=== PATIENT | male | born 1940 | race Caucasian/White ===

== ENCOUNTER 2017-09-19 14:42 | Inpatient (IN) | payer MEDICARE, OTHER ==
[2017-09-19] MEDS ORDERED: Nitrostat 0.4 MG Tablet SL PRN (16:50)
[2017-09-19] MEDS ORDERED: NON-FORMULARY ITEM (Warfarin Sodium [Coumadin] 4 MG) PO SCH (18:00)
[2017-09-19] MEDS: Colace 100 MG PO SCH (21:30)
[2017-09-20] MEDS: TENORMIN 50 MG PO SCH (08:31)
[2017-09-20] MEDS: Cozaar 50 MG PO SCH (08:31)
[2017-09-20] MEDS: Colace 100 MG PO SCH ×2 (08:31→21:27)
[2017-09-20] MEDS: THERAGRAN MULTIVITAMIN PO SCH (08:31)
[2017-09-20] MEDS: Cardizem CD 240 MG PO SCH (08:32)
[2017-09-20] MEDS: monoKET 20 MG PO SCH (08:32)
[2017-09-20] MEDS: Lasix 40 MG PO PRN (08:38)
[2017-09-20] MEDS ORDERED: SAW PO SCH (10:00)
[2017-09-20] MEDS ORDERED: PATIENT OWN MEDICATION PO SCH (10:00)
[2017-09-20] MEDS ORDERED: BETA PO SCH (10:00)
[2017-09-20] MEDS ORDERED: SOD SEL PO SCH (10:00)
[2017-09-20] MEDS ORDERED: MULTIVITAMIN PO SCH (10:00)
[2017-09-20] MEDS ORDERED: FLUZONE HIGH-DOSE 2017-18 SYR IM ONE (10:00)
[2017-09-20] MEDS ORDERED: VIT E PO SCH (10:00)
[2017-09-20] MEDS ORDERED: PYG PO SCH (10:00)
[2017-09-20] MEDS ORDERED: LYC PO SCH (10:00)
[2017-09-20] MEDS ORDERED: ATENOLOL 100 MG PO SCH (10:00)
[2017-09-20] MEDS: TYLENOL EXTRA STRENGTH 500 MG PO PRN ×2 (11:03→18:22)
--- NOTE | 2017-09-20 11:26 | PCM.HP ---
History of Present Illness - Chief Complaint Chief Complaint: Deconditionig R/T total R knee athroplasty. Date: 09/20/17 History of Present Illness: is a 77 year old male. who had right tka at [facility] and has presented for rehab inpatient So far doing well able to flex knee to 80 degrees walking with walker working with therapy no other complaints. Medications & Allergies Home Medications: Home Medication List Atenolol 100 mg PO DAILY 08/14/13 [History Confirmed 09/19/17] Isosorbide Mononitrate 20 mg [monoKET 20 MG] 20 mg PO DAILY 08/14/13 [ History Confirmed 09/19/17] Losartan Potassium 50 mg [Cozaar 50 MG] 100 mg PO DAILY 08/14/13 [History Confirmed 09/19/17] Multivitamin [Daily Enrique] 1 each PO DAILY 08/14/13 [History Confirmed 09/19/17] Nitroglycerin 0.4 mg Tablet [Nitrostat 0.4 MG Tablet] 0.4 mg SL .PRN PRN 08/14/13 [History Confirmed 09/19/17] Warfarin Sodium [Coumadin] 4 mg PO EVENING MEAL 08/14/13 [History Confirmed ] Furosemide [Lasix] 40 mg PO DAILY PRN 05/10/15 [History Confirmed 09/19/17] Saw/Vit E/Sod Sarina/Lyc/Beta/Pyg [Prostate Health Caplet] 2 tab PO DAILY 05/10/15 [History Confirmed 09/19/17] Docusate Sodium 100 mg [Colace 100 MG] 100 mg PO BID #60 capsule 05/15/15 [Rx Confirmed 09/19/17] Acetaminophen [Tylenol Extra Strength] 1,000 mg PO Q4-6HPRN PRN 09/19/17 [ History Confirmed 09/19/17] Diltiazem HCl [Diltiazem 24Hr ER] 240 mg PO DAILY 09/19/17 [History Confirmed ] Allergies/Adverse Reactions: Allergies Allergy/AdvReac Type Severity Reaction Status Date / Time [id number]-Iae-Mzg Reductase Allergy Severe Verified 09/19/17 16:32 Inhibitor ALBERTA Inhibitors Allergy Intermediate Verified 09/19/17 16:32 enalapril maleate Allergy Mild Verified 05/10/15 14:06 [From Vasotec] enalaprilat dihydrate Allergy Mild Verified 05/10/15 14:06 [From Vasotec] Tetanus Vaccines and Toxoid Allergy Mild Verified 05/10/15 14:06 [Tetanus Vaccines & Toxoid] - Past Medical History Past Medical History: Yes Neurological History: No Pertinent History ENT History: Cataracts Cardiac History: Aneurysm, Arrhythmia (afib), Coronary Artery Disease, High Cholesterol, Hypertension Respiratory History: No Pertinent History Endocrine Medical History: No Pertinent History Musculoskelatal History: Arthritis, Fractures GI Medical History: No Pertinent History History: No Pertinent History Pyscho-Social History: No Pertinent History Male Reproductive Disorders: No Pertinent History Comment: HX R arm FX. - Past Surgical History Past Surgical History: Yes Neuro Surgical History: No Pertinent History Cardiac History: Angioplasty, CABG, Cardiac Catheterization, Cardiac Stent, Internal Defibrillator, Pacemaker Respiratory Surgery: Chest Surgery GI Surgical History: Cholecystectomy, Other Genitourinary Surgical Hx: No Pertinent History Musculskeletal Surgical Hx: Joint Replacement Male Surgical History: No Pertinent History Other Surgical History: ORIF Right humerus 2016. CABG 1985. Cariac cath 2001, 2005, 2008, 2010, 2013 (stent). AICD 2008. jadiel hip replacement. R arm. R knee. resection abdominal aortic aneruysm 2001. Cholecystectomy 2014 - Social History Smoking Status: Former smoker How long have you smoked: 30 years Exposure to second hand smoke: No Alcohol: None Drug Use: none - Physical Exam Vital Signs: Vital Signs - 24 hr Temp Pulse Resp BP BP Pulse Ox 09/20/17 08:31 79 166/90 09/20/17 07:48 98.3 F 79 18 166/90 95 09/19/17 19:47 98.5 F 61 16 127/71 95 09/19/17 16:47 98 F 86 22 112/57 94 L 09/19/17 16:13 98 F 86 22 112/57 94 L General Appearance: no apparent distress, alert, obese Neurologic Exam: alert, oriented x 3, cooperative, normal mood/affect, nml cerebellar function, nml station & gait, sensation nml, No motor deficits Eye Exam: PERRL/EOMI, eyes nml inspection Ears, Nose, Throat Exam: moist mucous membranes Neck Exam: normal inspection, non-tender, supple, full range of motion Respiratory Exam: normal breath sounds, lungs clear, No respiratory distress Cardiovascular Exam: regular rate/rhythm, normal heart sounds, normal peripheral pulses Gastrointestinal/Abdomen Exam: soft, normal bowel sounds, No tenderness, No mass Back Exam: normal inspection, normal range of motion, No CVA tenderness, No vertebral tenderness Extremity Exam: other (right knee with clean dry dressing distally warm minimal edemea flexion to 80 degrees no warmth or redness) Skin Exam: normal color, warm, dry, No rash Lymphatic Exam: No adenopathy Assessment/Plan (1) Total knee replacement status Current Visit: Yes Status: Acute Qualifiers: Laterality: right Qualified Code(s): Z96.651 - Presence of right artificial knee joint Assessment & Plan: continue therapy good rehab to home potential Code(s): Z96.659 - PRESENCE OF UNSPECIFIED ARTIFICIAL KNEE JOINT (2) Chronic atrial fibrillation Current Visit: Yes Status: Chronic Assessment & Plan: inr was 1.3 on 09/19 has been on 4mg warfarin daily for the last year prior to stopping for surgery and was in therapeutic range per patient monitor INR repeat and recheck Code(s): I48.2 - CHRONIC ATRIAL FIBRILLATION (3) CAD (coronary artery disease) Current Visit: Yes Status: Chronic Code(s): I25.10 - ATHSCL HEART DISEASE OF [place] CORONARY ARTERY W/O ANG PCTRS (4) HTN (hypertension) Current Visit: Yes Status: Chronic Code(s): I10 - ESSENTIAL (PRIMARY) HYPERTENSION
[2017-09-20] MEDS ORDERED: Coumadin 2 MG PO SCH (18:00)
[2017-09-20] MEDS: Coumadin 2 MG PO SCH (19:36)
[2017-09-20] MEDS: PATIENT OWN MEDICATION PO SCH (21:27)
[2017-09-21] MEDS: TYLENOL EXTRA STRENGTH 500 MG PO SCH (05:59)
[2017-09-21 06:06] LABS: INR 1.49 (0.8-3.0); PROTIME 16.6 SECONDS (8.83-12.87)
[2017-09-21] MEDS: Cardizem CD 240 MG PO SCH (10:03)
[2017-09-21] MEDS: Cozaar 50 MG PO SCH (10:03)
[2017-09-21] MEDS: TENORMIN 50 MG PO SCH (10:03)
[2017-09-21] MEDS: monoKET 20 MG PO SCH (10:03)
[2017-09-21] MEDS: THERAGRAN MULTIVITAMIN PO SCH (10:03)
[2017-09-21] MEDS: Colace 100 MG PO SCH ×2 (10:03→22:20)
[2017-09-21] MEDS: PATIENT OWN MEDICATION PO SCH ×2 (10:11→22:14)
[2017-09-21] MEDS: TYLENOL EXTRA STRENGTH 500 MG PO PRN (13:29)
[2017-09-21] MEDS: Coumadin 2 MG PO SCH (16:59)
[2017-09-21] MEDS ORDERED: Coumadin 2 MG PO SCH (18:00)
[2017-09-21] MEDS: ULTRAM 50 MG PO PRN (20:24)
[2017-09-22] MEDS: TYLENOL EXTRA STRENGTH 500 MG PO PRN ×3 (00:10→18:38)
[2017-09-22] MEDS: TYLENOL EXTRA STRENGTH 500 MG PO SCH (06:23)
--- NOTE | 2017-09-22 07:49 | PCM.NOTE ---
Date and Time: 09/22/17 0746 Subjective Assessment: patient doing well, notes some swelling and erythema around bandage on right knee, no other complaints Objective Exam General Appearance: no apparent distress, alert Respiratory Exam: normal breath sounds, lungs clear, No respiratory distress Cardiovascular Exam: regular rate/rhythm, normal heart sounds Gastrointestinal/Abdomen Exam: soft, No tenderness, No mass Extremity Exam: other (dressing intact, 2 small areas of apparent moisture under bandage, mild surrounding erythema, no obvious warmth, no fluctuance or obvious effusion) OBJECTIVE DATA Vital Signs: Vital Signs - 24 hr Temp Pulse Resp BP BP Pulse Ox 09/22/17 07:10 98.3 F 69 18 188/88 96 09/21/17 19:57 98.5 F 61 17 139/67 95 09/21/17 10:03 80 142/64 Pain Assessment - Last Documented Pain Intensity 3 Pain Scale Used 0-10 Pain Scale Intake and Output: Intake & Output 09/19/17 09/20/17 09/21/17 09/22/17 11:59 11:59 11:59 11:59 Intake Total 1320 840 Output Total 500 300 275 Balance -500 1020 565 Weight 110.087 kg Assessment/Plan (1) Total knee replacement status Current Visit: Yes Status: Acute Qualifiers: Laterality: right Qualified Code(s): Z96.651 - Presence of right artificial knee joint Assessment & Plan: add po keflex Code(s): Z96.659 - PRESENCE OF UNSPECIFIED ARTIFICIAL KNEE JOINT (2) Chronic atrial fibrillation Current Visit: Yes Status: Chronic Code(s): I48.2 - CHRONIC ATRIAL FIBRILLATION (3) HTN (hypertension) Current Visit: Yes Status: Chronic Code(s): I10 - ESSENTIAL (PRIMARY) HYPERTENSION
[2017-09-22] MEDS: TENORMIN 50 MG PO SCH (09:15)
[2017-09-22] MEDS: Cozaar 50 MG PO SCH (09:21)
[2017-09-22] MEDS: KEFLEX 500 MG PO SCH ×4 (09:22→21:01)
[2017-09-22] MEDS: monoKET 20 MG PO SCH (09:22)
[2017-09-22] MEDS: Cardizem CD 240 MG PO SCH (09:22)
[2017-09-22] MEDS: THERAGRAN MULTIVITAMIN PO SCH (09:23)
[2017-09-22] MEDS: Colace 100 MG PO SCH ×2 (09:23→21:01)
[2017-09-22] MEDS: PATIENT OWN MEDICATION PO SCH ×2 (09:50→21:02)
[2017-09-22] MEDS: Coumadin 2 MG PO SCH (17:36)
[2017-09-22] MEDS: ULTRAM 50 MG PO PRN (21:01)
[2017-09-23] MEDS: TYLENOL EXTRA STRENGTH 500 MG PO SCH (05:28)
[2017-09-23] MEDS: Cozaar 50 MG PO SCH (09:32)
[2017-09-23] MEDS: TENORMIN 50 MG PO SCH (09:33)
[2017-09-23] MEDS: Colace 100 MG PO SCH ×2 (09:33→22:37)
[2017-09-23] MEDS: THERAGRAN MULTIVITAMIN PO SCH (09:33)
[2017-09-23] MEDS: monoKET 20 MG PO SCH (09:33)
[2017-09-23] MEDS: KEFLEX 500 MG PO SCH ×4 (09:36→22:36)
[2017-09-23] MEDS: PATIENT OWN MEDICATION PO SCH ×2 (09:37→22:37)
[2017-09-23] MEDS: Cardizem CD 240 MG PO SCH (09:37)
[2017-09-23] MEDS: Lasix 40 MG PO PRN (10:57)
--- NOTE | 2017-09-23 14:58 | PCM.NOTE ---
Date and Time: 09/23/17 1454 Subjective Assessment: Pt was concerned about erythema and edema of R knee. He has been keeping ice on it. Redness is less than yesterday. He notes 2 d ago he felt really good and did quite a bit of walking. At rest knee is not painful, but sore when he's up on it. - Review of Systems Constitutional: No Fever Musculoskeletal: Joint Pain Objective Exam General Appearance: no apparent distress, alert Neurologic Exam: oriented x 3, cooperative Skin Exam: normal color, warm, dry Respiratory Exam: No respiratory distress Extremity Exam: other (RLE with dressing in place on knee. Medially and laterally to the knee joint itself are marked borders of former erythema. no appreciable erythema today. trace edema throughout.) OBJECTIVE DATA Vital Signs: Vital Signs - 24 hr Temp Pulse Resp BP BP Pulse Ox 09/23/17 09:33 62 171/84 09/23/17 07:19 98.2 F 61 18 171/84 95 09/22/17 19:37 97.7 F 61 18 148/74 95 Pain Assessment - Last Documented Pain Intensity 5 Pain Scale Used 0-10 Pain Scale Intake and Output: Intake & Output 09/21/17 09/22/17 09/23/17 09/24/17 11:59 11:59 11:59 11:59 Intake Total 1320 840 840 Output Total 300 275 275 Balance 1020 565 565 Assessment/Plan (1) Total knee replacement status Current Visit: Yes Status: Acute Qualifiers: Laterality: right Qualified Code(s): Z96.651 - Presence of right artificial knee joint Assessment & Plan: I spoke with DR. Marquez's nurse, she was not overly concerned about his knee and the erythema, thinks it is due to inflammation. I will keep him on the keflex for now (will let Dr. Shay know tomorrow). At any rate he seems to be improving. She advised when he is elevating the leg, have him lie in bed and put it up on 4 pillows. Code(s): Z96.659 - PRESENCE OF UNSPECIFIED ARTIFICIAL KNEE JOINT
[2017-09-23] MEDS: Coumadin 2 MG PO SCH (17:57)
[2017-09-24 06:00] LABS: INR 2.02 (0.8-3.0); PROTIME 22.6 SECONDS (8.83-12.87)
[2017-09-24] MEDS: TYLENOL EXTRA STRENGTH 500 MG PO SCH (06:52)
--- NOTE | 2017-09-24 08:50 | PCM.NOTE ---
Date and Time: 09/24/17 0849 Subjective Assessment: patient is feeling better today, thinks the redness has improved around the knee. he is tolerating therapy, pain is controlled Objective Exam General Appearance: no apparent distress, alert Respiratory Exam: normal breath sounds, lungs clear, No respiratory distress Cardiovascular Exam: regular rate/rhythm, normal heart sounds Gastrointestinal/Abdomen Exam: soft, No tenderness, No mass Extremity Exam: other (right knee dressing in place, minimal erythema around bandage) OBJECTIVE DATA Vital Signs: Vital Signs - 24 hr Temp Pulse Resp BP BP Pulse Ox 09/24/17 08:00 98.7 F 86 18 181/91 96 09/23/17 20:00 98.2 F 66 17 164/79 95 09/23/17 09:33 62 171/84 Pain Assessment - Last Documented Pain Intensity 5 Pain Scale Used 0-10 Pain Scale Intake and Output: Intake & Output 09/21/17 09/22/17 09/23/17 09/24/17 11:59 11:59 11:59 11:59 Intake Total 1320 840 840 360 Output Total 300 275 275 950 Balance 1020 565 565 -590 Lab Results: Lab Results-Last 24 Hours 09/24/17 Range/Units 05:38 INR 2.02 (0.8-3.0) Assessment/Plan (1) Total knee replacement status Current Visit: Yes Status: Acute Qualifiers: Laterality: right Qualified Code(s): Z96.651 - Presence of right artificial knee joint Assessment & Plan: continue keflex at this time, will monitor. erythema improving. Code(s): Z96.659 - PRESENCE OF UNSPECIFIED ARTIFICIAL KNEE JOINT (2) Chronic atrial fibrillation Current Visit: Yes Status: Chronic Code(s): I48.2 - CHRONIC ATRIAL FIBRILLATION (3) HTN (hypertension) Current Visit: Yes Status: Chronic Code(s): I10 - ESSENTIAL (PRIMARY) HYPERTENSION
[2017-09-24] MEDS: TENORMIN 50 MG PO SCH (09:41)
[2017-09-24] MEDS: Colace 100 MG PO SCH ×2 (09:42→21:11)
[2017-09-24] MEDS: THERAGRAN MULTIVITAMIN PO SCH (09:42)
[2017-09-24] MEDS: Cozaar 50 MG PO SCH (09:42)
[2017-09-24] MEDS: KEFLEX 500 MG PO SCH ×4 (09:42→21:11)
[2017-09-24] MEDS: Cardizem CD 240 MG PO SCH (09:42)
[2017-09-24] MEDS: monoKET 20 MG PO SCH (09:42)
[2017-09-24] MEDS: PATIENT OWN MEDICATION PO SCH ×2 (09:44→21:11)
[2017-09-24] MEDS: TYLENOL EXTRA STRENGTH 500 MG PO PRN ×2 (16:48→21:11)
[2017-09-24] MEDS: Coumadin 2 MG PO SCH (18:06)
[2017-09-25] MEDS: TYLENOL EXTRA STRENGTH 500 MG PO SCH (06:17)
[2017-09-25] MEDS: TENORMIN 50 MG PO SCH (08:28)
[2017-09-25] MEDS: Colace 100 MG PO SCH ×2 (08:28→23:10)
[2017-09-25] MEDS: Cozaar 50 MG PO SCH (08:28)
[2017-09-25] MEDS: THERAGRAN MULTIVITAMIN PO SCH (08:28)
[2017-09-25] MEDS: Cardizem CD 240 MG PO SCH (08:28)
[2017-09-25] MEDS: monoKET 20 MG PO SCH (08:28)
[2017-09-25] MEDS: KEFLEX 500 MG PO SCH ×4 (08:28→23:10)
[2017-09-25] MEDS: PATIENT OWN MEDICATION PO SCH ×2 (08:30→23:11)
[2017-09-25] MEDS: TYLENOL EXTRA STRENGTH 500 MG PO PRN ×2 (11:20→20:02)
[2017-09-25] MEDS: Coumadin 2 MG PO SCH (18:00)
[2017-09-25 20:02] VITALS: O2SAT 96
[2017-09-26] MEDS: TYLENOL EXTRA STRENGTH 500 MG PO SCH (06:11)
[2017-09-26 07:16] VITALS: BP 155/80; PULSE 82
[2017-09-26] MEDS: monoKET 20 MG PO SCH (07:56)
[2017-09-26] MEDS: KEFLEX 500 MG PO SCH (07:56)
[2017-09-26] MEDS: Cardizem CD 240 MG PO SCH (07:56)
[2017-09-26] MEDS: Colace 100 MG PO SCH (07:56)
[2017-09-26] MEDS: THERAGRAN MULTIVITAMIN PO SCH (07:56)
[2017-09-26] MEDS: TENORMIN 50 MG PO SCH (07:56)
[2017-09-26] MEDS: Cozaar 50 MG PO SCH (07:56)
--- NOTE | 2017-09-26 08:39 | PCM.DS ---
Discharge Summary Date of Admission: 09/19/17 15:58 Admitting Physician: AILEEN MULLEN Primary Care Provider: AILEEN MULLEN Allergies Allergies Akjldkv-Ajj-Lly Reductase Inhibitor Allergy (Severe, Verified 09/19/17 16:32) ALBERTA Inhibitors Allergy (Intermediate, Verified 09/19/17 16:32) enalapril maleate [From Vasotec] Allergy (Mild, Verified 05/10/15 14:06) enalaprilat dihydrate [From Vasotec] Allergy (Mild, Verified 05/10/15 14:06) Tetanus Vaccines and Toxoid [Tetanus Vaccines & Toxoid] Allergy (Mild, Verified 05/10/15 14:06) Hospital Summary - Hospital Course Hospital Course: patient was admitted from [facility] s/p right total knee, he is doing very well. therapy states he is ready for discharge and he would like to return to home today. he is tolerating therapy well, pain is well controlled. he is able to ambulate and feels comfortable he will be able to care for himself. - Vitals & Intake/Output Vital Signs: Vital Signs Temperature 98.1 F 09/26/17 07:15 Pulse Rate 82 09/26/17 07:56 Respiratory Rate 20 09/26/17 07:15 Blood Pressure 155/80 09/26/17 07:56 O2 Sat by Pulse Oximetry 96 09/26/17 07:15 Intake & Output: Intake & Output 09/23/17 09/24/17 09/25/17 09/26/17 11:59 11:59 11:59 11:59 Intake Total 840 984 360 0892 Output Total 275 225 675 625 Balance 565 -590 165 935 - Procedures and Test Procedures and Tests throughout Hospitalization: Therapy Orders & Screens 09/19/17 16:09 PT Eval & Treat ( Order) ROUTINE Evaluate: Yes Treat: Yes Reason for Eval:: right total knee replacement Discharge Exam General Appearance: no apparent distress, alert Respiratory Exam: normal breath sounds, lungs clear, No respiratory distress Cardiovascular Exam: regular rate/rhythm, normal heart sounds Gastrointestinal/Abdomen Exam: soft, No tenderness, No mass Final Diagnosis/Problem List - Final Discharge Diagnosis/Problem (1) Total knee replacement status Current Visit: Yes Status: Acute (2) Chronic atrial fibrillation Current Visit: Yes Status: Chronic (3) HTN (hypertension) Current Visit: Yes Status: Chronic - Discharge Disposition: Home, Self-Care Condition: Stable Prescriptions: New Cephalexin Mh 500 mg [Keflex 500 mg] 500 mg PO QID #20 capsule Tramadol HCl 50 mg [Ultram 50 mg] 50 mg PO QID PRN PRN #30 tablet PRN Reason: Pain Continue Nitroglycerin 0.4 mg Tablet [Nitrostat 0.4 MG Tablet] 0.4 mg SL .PRN PRN PRN Reason: Chest Pain Losartan Potassium 50 mg [Cozaar 50 MG] 100 mg PO DAILY Warfarin Sodium [Coumadin] 4 mg PO EVENING MEAL Isosorbide Mononitrate 20 mg [monoKET 20 MG] 20 mg PO DAILY Multivitamin [Daily Enrique] 1 each PO DAILY Atenolol 100 mg PO DAILY Saw/Vit E/Sod Sarina/Lyc/Beta/Pyg [Prostate Health Caplet] 1 tab PO BID Furosemide [Lasix] 40 mg PO DAILY PRN PRN Reason: edema Docusate Sodium 100 mg [Colace 100 MG] 100 mg PO BID #60 capsule Diltiazem HCl [Diltiazem 24Hr ER] 240 mg PO DAILY Acetaminophen [Tylenol Extra Strength] 1,000 mg PO Q4-6HPRN PRN PRN Reason: Pain Follow up with: AILEEN MULLEN MD [Primary Care Provider] - 1 Week ROSALINDA BENAVIDEZ Jr., MD [NON-STAFF PHY W/O PRIVILEGES] - 09/29/17 10:15 am ( [facility]) Forms: Patient Portal Information
[2017-09-26] MEDS: TYLENOL EXTRA STRENGTH 500 MG PO PRN (09:23)
[2017-09-26] MEDS: PATIENT OWN MEDICATION PO SCH (09:42)
[2017-09-26] MEDS: ULTRAM 50 MG PO PRN (13:26)
[2017-09-30] MEDS ORDERED: Aplisol ID SCH (10:00)
== END 2017-09-26 14:10 | disposition home or self-care (01) | DRG 554 ==
LOC: MED SURG 15:58
PROVIDERS: ADMIT Family Medicine; ATTEND Family Medicine
DX: M17.11 Unilateral primary osteoarthritis, right knee (principal); I25.810 Atherosclerosis of coronary artery bypass graft(s) without angina pectoris; Z96.651 Presence of right artificial knee joint; I48.2 Chronic atrial fibrillation; Z79.01 Long term (current) use of anticoagulants; I10 Essential (primary) hypertension; Z95.810 Presence of automatic (implantable) cardiac defibrillator
CPT/HCPCS: 36415; 85610; G0008; 90662; 97110-GP; A9270-GY

== ENCOUNTER 2021-02-27 14:15 | Emergency (ER) | payer MEDICARE, OTHER ==
[2021-02-27 14:36] VITALS: BP 138/71
--- NOTE | 2021-02-27 14:48 | ERPHSYRPT ---
- History of Present Illness Source: patient Exam Limitations: other (Poor historian) Patient Subjective Stated Complaint: Head injury Triage Nursing Assessment: Patient brought back to ED and transferred to bed per self. Patient A+O X3. Patient's skin pink, warm and dry. Patient states he got dizzy and fell on Friday. Patient complains of headache and left eye pain 5/10. No visible injuires noted to head. Patient states his vision in his left eye is blurry. Physician History: 80 yo wm w fall in [place] on 02/23/21. Pt presents w a L frontal SHEFFIELD and blurry vision from L eye. Pt is on coumadin but has not had his INR evaluated recently. Pain is rated 4/10. He states that he did not believe that he hit his head but has had a SHEFFIELD since the fall. Pt lost his balance. He denies focal weakness/chest pain/dyspnea/other injuries. Occurred: other (02/23/21) Reason for Fall: lost balance Injuries/Pain Location: head Loss of Consciousness: other (Unknown) Quality: aching, stabbing Severity of Pain-Current: mild Modifying Factors: Improves With: nothing Associated Symptoms (Fall): headache, vision changes, No abdominal pain, No back pain, No confusion, No chest pain, No dizziness, No extremity injury, No lightheadedness, No muscle spasms, No nausea, No neck pain, No ringing in ears, No seizures, No shortness of breath, No slurred speech, No trouble walking, No vomiting Allergies/Adverse Reactions: Sckkony-Gpg-Guu Reductase Inhibitor Allergy (Severe, Verified 02/27/21 14:20) ALBERTA Inhibitors Allergy (Intermediate, Verified 02/27/21 14:20) enalapril maleate [From Vasotec] Allergy (Mild, Verified 02/27/21 14:20) enalaprilat dihydrate [From Vasotec] Allergy (Mild, Verified 02/27/21 14:20) Tetanus Vaccines and Toxoid [Tetanus Vaccines & Toxoid] Allergy (Mild, Verified 02/27/21 14:20) Home Medications: Atenolol 100 mg PO DAILY 08/14/13 [History] Isosorbide Mononitrate 20 mg [monoKET 20 MG] 20 mg PO DAILY 08/14/13 [History] Losartan Potassium 50 mg [Cozaar 50 MG] 100 mg PO DAILY 08/14/13 [History] Multivitamin [Daily Enrique] 1 each PO DAILY 08/14/13 [History] Nitroglycerin 0.4 mg Tablet [Nitrostat 0.4 MG Tablet] 0.4 mg SL .PRN PRN 08/14/13 [History] Warfarin Sodium [Coumadin] 4 mg PO EVENING MEAL 08/14/13 [History] Furosemide [Lasix] 40 mg PO DAILY PRN 05/10/15 [History] Saw/Vit E/Sod Sarina/Lyc/Beta/Pyg [Prostate Health Caplet] 1 tab PO BID 05/10/15 [History] Acetaminophen [Tylenol Extra Strength] 1,000 mg PO Q4-6HPRN PRN 09/19/17 [History] dilTIAZem HCl [Diltiazem 24Hr ER (Cd)] 240 mg PO DAILY 09/19/17 [History] Hx Tetanus, Diphtheria Vaccination/Date Given: No Hx Influenza Vaccination/Date Given: Yes Hx Pneumococcal Vaccination/Date Given: Yes Immunizations Up to Date: Yes Travel Risk - International Travel Have you traveled outside of the country in past 3 weeks: No - Coronavirus Screening Are you exhibiting any of the following symptoms?: No Close contact with a COVID-19 positive Pt in past 14-21 Days: No - Vaccine Status Have you recieved a Covid-19 vaccination: Yes Process Control Programmer: Moderna - Vaccination Dates Date of 1st Vaccination: 02/01/21 Date of 2cond Vaccination (if applicable): N/A - Review of Systems Constitutional: No Symptoms Eyes: Other (Blurry vision L eye) Ears, Nose, & Throat: No Symptoms Respiratory: No Symptoms Cardiac: No Symptoms Abdominal/Gastrointestinal: No Symptoms Genitourinary Symptoms: No Symptoms Musculoskeletal: No Symptoms Skin: No Symptoms Neurological: Headache Psychological: No Symptoms Endocrine: No Symptoms Hematologic/Lymphatic: No Symptoms Immunological/Allergic: No Symptoms - Past Medical History Pertinent Past Medical History: Yes Neurological History: No Pertinent History ENT History: Cataracts Cardiac History: Aneurysm, Coronary Artery Disease, High Cholesterol, Hypertension, Peripheral Vascular Disease, Other Respiratory History: Other Endocrine Medical History: No Pertinent History Musculoskeletal History: Arthritis, Fractures, Osteoarthritis, Other GI Medical History: No Pertinent History History: No Pertinent History Psycho-Social History: No Pertinent History Male Reproductive Disorders: No Pertinent History Other Medical History: FORMER SMOKER. CABG 1985. HEART CATH 2001,2005,2008. CARDIAC STENT 2013. 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 HX OF BILATERAL HIP REPLACEMENTS. FX RIGHT HUMERUS 2016 - Past Surgical History Past Surgical History: Yes Neuro Surgical History: No Pertinent History Cardiac: Angioplasty, CABG, Cardiac Catheterization, Cardiac Stent, Internal Defibrillator, Pacemaker Respiratory: Chest Surgery Gastrointestinal: Cholecystectomy, Other Genitourinary: No Pertinent History Musculoskeletal: Joint Replacement Male Surgical History: No Pertinent History Other Surgical History: ORIF Right humerus 2016. CABG 1985. Cariac cath 2001, 2005, 2008, 2010, 2013 (stent). AICD 2008. jadiel hip replacement. R arm. R knee. resection abdominal aortic aneruysm 2001. Cholecystectomy 2014 - Social History Smoking Status: Former smoker How long have you smoked: 30 years Exposure to second hand smoke: No Drug Use: none Patient Lives Alone: No Significant Family History: no pertinent family hx - Nursing Vital Signs Nursing Vital Signs: Initial Vital Signs Temperature 98.0 F 02/27/21 14:21 Pulse Rate 60 02/27/21 14:21 Respiratory Rate 18 02/27/21 14:21 Blood Pressure 138/71 02/27/21 14:21 O2 Sat by Pulse Oximetry 96 02/27/21 14:21 Pain Scale Pain Intensity 2 - [place] Coma Score Best Eye Response (Axtell): (4) open spontaneously Best Verbal Response (Janet): (5) oriented Best Motor Response (Janet): (3) flexion to pain [place] Total: 12 - Physical Exam General Appearance: no apparent distress Head Injury: tenderness (L Frontal TTP(mild)) Eye Exam: PERRL/EOMI, eyes nml inspection ENT Exam: airway nml, nml ext.inspection, No evidence of ENT injury Neck Exam: supple, trachea midline, full range of motion, tenderness (Mild TTP) Respiratory/Chest Exam: normal breath sounds, No chest tenderness, No respiratory distress, No crepitus, No decreased breath sounds Cardiovascular Exam: normal heart sounds, regular rate/rhythm, normal peripheral pulses, No murmur Gastrointestinal Exam: soft, normal bowel sounds, No tenderness Back Exam: normal inspection, normal range of motion, vertebral tenderness (No T or L-spine TTP) Extremity Exam: normal inspection, normal range of motion, pelvis stable Peripheral Pulses: carotid (R): 2+, carotid (L): 2+ Neurologic Exam: alert, oriented x 3, cooperative, radiological engineer II-XII nml as tested, normal mood/affect Skin Exam: normal color, warm, dry, No rash SpO2 Interpretation: normal SpO2: 96 O2 Delivery: Room Air - Course Nursing assessment & vital signs reviewed: Yes EKG Interpreted by Me: RATE (Paced/R60/No acute changes) - CT Exams Head CT Interpretation: Discussed w/radiologist (Nothing acute) Cervical Spine CT Interpretation: Discussed w/radiologist (Nothing acute) Ordered Tests: Active Orders 24 hr Category Date Time Status EKG-ER Only STAT Care 02/27/21 14:42 Completed CERVICAL SPINE WO CONTRAST [CT] Stat Exams 02/27/21 14:42 Completed HEAD WITHOUT CONTRAST [CT] Stat Exams 02/27/21 14:41 Completed CBC W DIFF Stat Lab 02/27/21 15:16 Completed CMP Stat Lab 02/27/21 15:16 Completed Manual Differential NC Stat Lab 02/27/21 15:16 Completed PROTIME WITH INR Stat Lab 02/27/21 15:16 Completed PTT Stat Lab 02/27/21 15:16 Completed TROPONIN Q3H Lab 02/27/21 15:16 Completed TROPONIN Q3H Lab 02/27/21 17:25 Completed Medication Summary Discontinued Medications Generic Name Dose Route Start Last Admin Trade Name Patrick PRN Reason Stop Dose Admin Ketorolac Tromethamine 30 mg 02/27/21 18:09 02/27/21 18:17 Toradol 30 Mg Injection IM 02/27/21 18:10 30 mg STAT ONE Administration Ketorolac Tromethamine Confirm 02/27/21 18:14 Toradol 30 Mg Injection Administered 02/27/21 18:15 Dose 30 mg .ROUTE .STK-MED ONE Tramadol HCl 50 mg 02/27/21 18:29 02/27/21 18:34 Ultram 50 Mg PO 02/27/21 18:30 50 mg STAT ONE Administration Tramadol HCl Confirm 02/27/21 18:31 Ultram 50 Mg Administered 02/27/21 18:32 Dose 100 mg .ROUTE .STK-MED ONE Lab/Rad Data: Laboratory Result Diagrams 02/27/21 15:16 02/27/21 15:16 Laboratory Results 03/02/27/21 02/27/21 Range/Units 17:25 15:16 15:16 WBC (4.0-10.5) K/mm3 RBC (4.1-5.6) M/mm3 Hgb (12.5-18.0) gm/dl Hct (42-50) % MCV (78-100) fl MCH (26-32) pg MCHC (32-36) g/dl RDW (11.5-14.0) % Plt Count (150-450) K/mm3 MPV (7.5-11.0) fl Segmented Neutrophils (36.-66.) % Lymphocytes (Manual) (24-44) % Monocytes (Manual) (0.0-12.0) % Eosinophils (Manual) (0.00-3.0) % Platelet Estimate (NORMAL) RBC Morphology PT 22.8 H (8.83-12.87) SECONDS INR 2.00 (0.8-3.0) APTT 38.3 H (24.1-36.1) SECONDS Sodium (137-145) mmol/L Potassium (3.5-5.1) mmol/L Chloride (98-107) mmol/L Carbon Dioxide (22-30) mmol/L Anion Gap (5-15) MEQ/L BUN (9-20) mg/dL Creatinine (0.66-1.25) mg/dL Estimated GFR ML/MIN Glucose (74-106) mg/dL Calcium (8.4-10.2) mg/dL Total Bilirubin (0.2-1.3) mg/dL AST (17-59) U/L ALT (0-50) U/L Alkaline Phosphatase (38-126) U/L Troponin I 0.040 H* 0.052 H* (0.000-0.034) ng/mL Serum Total Protein (6.3-8.2) g/dL Albumin (3.5-5.0) g/dL 02/27/21 02/27/21 Range/Units 15:16 15:16 WBC 7.7 (4.0-10.5) K/mm3 RBC 4.10 (4.1-5.6) M/mm3 Hgb 12.7 (12.5-18.0) gm/dl Hct 38.6 L (42-50) % MCV 94.1 (78-100) fl MCH 31.0 (26-32) pg MCHC 32.9 (32-36) g/dl RDW 13.7 (11.5-14.0) % Plt Count 253 (150-450) K/mm3 MPV 9.3 (7.5-11.0) fl Segmented Neutrophils 69 H (36.-66.) % Lymphocytes (Manual) 13 L (24-44) % Monocytes (Manual) 15 H (0.0-12.0) % Eosinophils (Manual) 3 (0.00-3.0) % Platelet Estimate NORMAL (NORMAL) RBC Morphology NORMAL PT (8.83-12.87) SECONDS INR (0.8-3.0) APTT (24.1-36.1) SECONDS Sodium 138 (137-145) mmol/L Potassium 4.3 (3.5-5.1) mmol/L Chloride 99 (98-107) mmol/L Carbon Dioxide 30 (22-30) mmol/L Anion Gap 12.7 (5-15) MEQ/L BUN 20 (9-20) mg/dL Creatinine 1.22 (0.66-1.25) mg/dL Estimated GFR > 60.0 ML/MIN Glucose 101 (74-106) mg/dL Calcium 9.1 (8.4-10.2) mg/dL Total Bilirubin 0.90 (0.2-1.3) mg/dL AST 20 (17-59) U/L ALT 13 (0-50) U/L Alkaline Phosphatase 82 (38-126) U/L Troponin I (0.000-0.034) ng/mL Serum Total Protein 7.6 (6.3-8.2) g/dL Albumin 4.2 (3.5-5.0) g/dL - Progress Progress: improved Progress Note: 02/27/21 18:31 Pt's initial Trop mildly elevated with 2 hour f/u decreased but still mildly elevated. Pt wo chest pain or dyspnea before and after fall on 02/23/21. Spoke w Dr. Tafoya who was continuous miner operator for Dr. Birmingham(Pt's fitter placer). He believes that elevated troponin is most likely due to pt's cardiomyopathy. Wants pt to call Dr. Birmingham in AM for office f/u. 30mg IM Toradol Ultram 50mg po x2 take home. Counseled pt/family regarding: lab results, diagnosis, need for follow-up, rad results - Departure Departure Disposition: Home Clinical Impression: Head injury, Post-traumatic headache, Cervical strain, Elevated troponin Condition: Stable Critical Care Time: No Referrals: AILEEN MULLEN MD [Primary Care Provider] - Instructions: Concussion, Adult (DC), Closed Head Injury (DC) Additional Instructions: Call Dr. Birmingham's office in AM for appointment Ultram as needed for pain Return to ER for chest pain/shortness of breath/Focal weakness
--- NOTE | 2021-02-27 15:20 | XRAY ---
Indication: Right-sided injury following fall. Left vision blurry. Multiple contiguous axial images obtained through the head without contrast. Comparison: None Age-appropriate global atrophy and moderate periventricular degenerative micro-ischemia bilaterally. No acute intracranial hemorrhage, abnormal extra-axial fluid collection, or mass effect. Fourth ventricle is midline without hydrocephalus. Bony calvarium intact. Visualized paranasal sinuses and mastoid air cells are clear. Impression: Nonacute senile brain.
[2021-02-27 15:21] LABS: Hematocrit 38.6 % (42-50); Hemoglobin 12.7 gm/dl (12.5-18.0); Mean Cell Volume 94.1 fl (78-100); Mean Corpuscular Hgb Concent. 32.9 g/dl (32-36); Mean Platelet Volume 9.3 fl (7.5-11.0); Platelet Count 253 K/mm3 (150-450); Red Cell Distribution Width 13.7 % (11.5-14.0); White Blood Count 7.7 K/mm3 (4.0-10.5)
--- NOTE | 2021-02-27 15:22 | XRAY ---
Indication: Neck injury following fall. Multiple contiguous axial images obtained through the cervical spine. Sagittal and coronal reformatted images obtained. Comparison: None Axial images negative for acute fracture or suspicious bony lesions. There is mild/moderate multilevel degenerative endplate spurring greatest C4-C6 levels. Also moderate multilevel bilateral degenerative facet hypertrophy and mild atlantoaxial degenerative arthropathy. Sagittal and coronal reformatted images demonstrates normal lordosis with minimal 1-2 mm C3 anterolisthesis. No acute compression fracture or jumped facet. Normal appearing craniocervical junction. Visualized noncontrasted soft tissues demonstrates moderate carotid calcifications bilaterally. Lung apices are clear. Impression: 1. Negative for acute fracture. 2. Multilevel degenerative spondylosis including minimal grade 1 C3 spondylolisthesis.
[2021-02-27 15:24] LABS: PROTIME 22.8 SECONDS (8.83-12.87)
[2021-02-27 15:26] LABS: ALBUMIN 4.2 g/dL (3.5-5.0); ALKALINE PHOSPHATASE 82 U/L (38-126); ANION GAP 12.7 MEQ/L (5-15); BLOOD UREA NITROGEN 20 mg/dL (9-20); CHLORIDE 99 mmol/L (98-107); Calcium 9.1 mg/dL (8.4-10.2); Carbon Dioxide 30 mmol/L (22-30); Creatinine 1 1.22 mg/dL (0.66-1.25); EST GLOMERULAR FILTRATION RATE > 60.0 ML/MIN; Glucose 101 mg/dL (74-106); PTT 38.3 SECONDS (24.1-36.1); Potassium 4.3 mmol/L (3.5-5.1); SGOT/AST 20 U/L (17-59); SGPT/ALT 13 U/L (0-50); SODIUM 138 mmol/L (137-145); Total Protein 7.6 g/dL (6.3-8.2)
[2021-02-27 16:09] LABS: Eosinophil 3 % (0.00-3.0); Lymphocytes 13 % (24-44); Monocyte 15 % (0.0-12.0); Neutrophils 69 % (36.-66.); Total Cells Counted 100
[2021-02-27 16:10] LABS: Platelet Estimate NORMAL (NORMAL)
[2021-02-27] MEDS ORDERED: TORAdol 30 mg Injection ONE (18:14)
[2021-02-27] MEDS: TORAdol 30 mg Injection IM ONE (18:17)
[2021-02-27 18:28] VITALS: PULSE 63
[2021-02-27] MEDS ORDERED: ULTRAM 50 MG ONE (18:31)
[2021-02-27] MEDS: ULTRAM 50 MG PO ONE (18:34)
[2021-02-27 18:36] VITALS: O2SAT 96
== END 2021-02-27 18:43 | disposition home or self-care (01) ==
LOC: ED 14:15
DX: S09.90XA Unspecified injury of head, initial encounter (principal); W19.XXXA Unspecified fall, initial encounter; Y93.9 Activity, unspecified; Y92.9 Unspecified place or not applicable; R51.9 Headache, unspecified; S16.1XXA Strain of muscle, fascia and tendon at neck level, initial encounter; X58.XXXA Exposure to other specified factors, initial encounter; Z79.2 Long term (current) use of antibiotics; Z79.899 Other long term (current) drug therapy; Z79.01 Long term (current) use of anticoagulants; I25.10 Atherosclerotic heart disease of native coronary artery without angina pectoris; I10 Essential (primary) hypertension; E78.00 Pure hypercholesterolemia, unspecified; I73.9 Peripheral vascular disease, unspecified; I25.810 Atherosclerosis of coronary artery bypass graft(s) without angina pectoris
CPT/HCPCS: 36415; 70450; 72125; 80053; 84484; 85025; 85610; 85730; 93005; 96372; 99284; J1885; A9270-GY

== ENCOUNTER 2021-10-02 16:23 | Emergency (ER) | payer MEDICARE, OTHER ==
--- NOTE | 2021-10-02 16:35 | ERPHSYRPT ---
- History of Present Illness Time Seen by Provider: 10/02/21 16:31 Source: patient, EMS, old records Exam Limitations: clinical condition Physician History: This is an 81-year-old white male patient of Dr. Shay (primary physician) and Dr. Megan Birmingham (premium card cancellation clerk) who presents to the emergency department via EMS with 2 to 3-day history of weakness, cough, shortness of breath and diarrhea. Patient has had a pacemaker placed. He has chronic atrial fibrillation on Coum ailin. EMS brought the patient into the emergency department and patient was hypoxic. Upon arrival to the emergency department we checked his room air oxygen nation level and it was 75%. He increased to 88% on 6 L nasal cannula. Patient fell earlier today but did not lose consciousness per his report. He also complains of right knee pain. If transfer is needed, patient and family state that they want to transfer to [facility]. Patient denies chest pain. He denies abdominal pain. He has not had a fever. Apparently, the patient has not been fully vaccinated. He received 1 of 2 injections of the COVID-19 vaccine in January 2021. Patient, at this time, is a full code with placement on ventilator if needed and CPR with defibrillation if required. Patient has a history of coronary artery disease, he also has a history of thoracic aortic aneurysm with repair Timing/Duration: day(s) (2-3) Severity: moderate Associated Symptoms: shortness of breath, weakness, other (Diarrhea) Allergies/Adverse Reactions: Artamnm-FHP-AzN Reductase Inhibitor [Xpugcag-Tez-Ixq Reductase Inhibitor] Allergy (Severe, Verified 02/27/21 14:20) ALBERTA Inhibitors Allergy (Intermediate, Verified 02/27/21 14:20) enalapril maleate [From Vasotec] Allergy (Mild, Verified 02/27/21 14:20) enalaprilat dihydrate [From Vasotec] Allergy (Mild, Verified 02/27/21 14:20) Tetanus Vaccines and Toxoid [Tetanus Vaccines & Toxoid] Allergy (Mild, Verified 02/27/21 14:20) Home Medications: Isosorbide Mononitrate 20 mg [monoKET 20 MG] 20 mg PO DAILY 08/14/13 [History] Multivitamin [Daily Enrique] 1 each PO DAILY 08/14/13 [History] Nitroglycerin 0.4 mg Tablet [Nitrostat 0.4 MG Tablet] 0.4 mg SL .PRN PRN 08/14/13 [History] Warfarin Sodium [Coumadin] 4 mg PO EVENING MEAL 08/14/13 [History] Furosemide [Lasix] 40 mg PO DAILY PRN 05/10/15 [History] Saw/Vit E/Sod Sarina/Lyc/Beta/Pyg [Prostate Health Caplet] 1 tab PO BID 05/10/15 [History] Acetaminophen [Tylenol Extra Strength] 1,000 mg PO Q4-6HPRN PRN 09/19/17 [History] dilTIAZem HCl [Diltiazem 24Hr ER (Cd)] 240 mg PO DAILY 09/19/17 [History] Hx Tetanus, Diphtheria Vaccination/Date Given: No Hx Influenza Vaccination/Date Given: Yes Hx Pneumococcal Vaccination/Date Given: Yes Travel Risk - International Travel Have you traveled outside of the country in past 3 weeks: No - Coronavirus Screening Are you exhibiting any of the following symptoms?: Yes Symptoms: Cough: New Onset, Shortness of Breath, Vomiting/Diarrhea Close contact with a COVID-19 positive Pt in past 14-21 Days: No - Vaccine Status Have you recieved a Covid-19 vaccination: Yes 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 - Vaccination Dates Date of 1st Vaccination: 02/01/21 Date of 2cond Vaccination (if applicable): N/A - Review of Systems Constitutional: Weakness Eyes: No Symptoms Ears, Nose, & Throat: No Symptoms Respiratory: Cough, Dyspnea Cardiac: No Symptoms Abdominal/Gastrointestinal: Diarrhea, No Abdominal Pain, No Nausea, No Vomiting Genitourinary Symptoms: No Symptoms Musculoskeletal: No Symptoms Skin: No Symptoms Neurological: No Symptoms Psychological: No Symptoms Endocrine: No Symptoms Hematologic/Lymphatic: No Symptoms Immunological/Allergic: No Symptoms All Other Systems: Reviewed and Negative - Past Medical History Pertinent Past Medical History: Yes Neurological History: No Pertinent History ENT History: Cataracts Cardiac History: Aneurysm, Arrhythmia, Congestive Heart Failure, Coronary Artery Disease, High Cholesterol, Hypertension Respiratory History: No Pertinent History Endocrine Medical History: No Pertinent History Musculoskeletal History: Osteoarthritis GI Medical History: No Pertinent History History: No Pertinent History Psycho-Social History: No Pertinent History Male Reproductive Disorders: No Pertinent History Other Medical History: SX HX BILATERAL TOTAL KNEE REPLACEMENTS WITH RIGHT 2016, , LEFT TOTAL HIP REPLACEMENT, FX 2017, RIGHT WITH [place] PLACEMENT, CABG 1986 X 3, AND HX OF A TOTAL OF 10 STENTS, PLACEMENT OF DEFIBRILLATOR/PACEMAKER, CHOLECYSTECTOMY, RESECTION ABDOMINAL AORTIC ANEURYMS - Past Surgical History Past Surgical History: Yes Neuro Surgical History: No Pertinent History Cardiac: Angioplasty, CABG, Cardiac Catheterization, Cardiac Stent, Internal De fibrillator, Pacemaker Respiratory: Chest Surgery Gastrointestinal: Cholecystectomy, Other Genitourinary: No Pertinent History Musculoskeletal: Joint Replacement Male Surgical History: No Pertinent History Other Surgical History: ORIF Right humerus 2016. CABG 1985. Cariac cath 2001, 2005, 2008, 2010, 2013 (stent). AICD 2008. jadiel hip replacement. R arm. R knee. resection abdominal aortic aneruysm 2001. Cholecystectomy 2014 - Social History Smoking Status: Former smoker How long have you smoked: 30 years Exposure to second hand smoke: No Drug Use: none Patient Lives Alone: No Significant Family History: no pertinent family hx - Nursing Vital Signs Nursing Vital Signs: Initial Vital Signs Temperature 97.5 F 10/02/21 16:24 Pulse Rate 102 H 10/02/21 16:24 Respiratory Rate 28 H 10/02/21 16:24 Blood Pressure 121/61 10/02/21 16:24 O2 Sat by Pulse Oximetry 75 L 10/02/21 16:24 Pain Scale Pain Intensity 0 - Physical Exam General Appearance: no apparent distress, alert, obese Eye Exam: PERRL/EOMI, eyes nml inspection Ears, Nose, Throat Exam: normal ENT inspection, moist mucous membranes Neck Exam: normal inspection, non-tender, supple, full range of motion Respiratory Exam: normal breath sounds, respiratory distress, airway intact, No chest tenderness, No lungs clear Cardiovascular Exam: regular rate/rhythm, irregular Gastrointestinal/Abdomen Exam: soft, normal bowel sounds, No tenderness Rectal Exam: not done Back Exam: normal inspection, normal range of motion, No CVA tenderness, No vertebral tenderness Extremity Exam: normal inspection, normal range of motion, pelvis stable Neurologic Exam: alert, oriented x 3, cooperative, 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 fib/flutter is new compared to EKG dated 02/27/2021.) Ordered Tests: Active Orders 24 hr Category Date Time Status Maintenance Representative STAT Care 10/02/21 16:37 Active EKG-ER Only STAT Care 10/02/21 16:35 Active IV Insertion STAT Care 10/02/21 16:35 Active Oxygen-ED Only Nasal Cannula 6 lpm Care 10/02/21 16:35 Active CHEST 1 VIEW (PORTABLE) Stat Exams 10/02/21 16:37 Taken CHEST WITH CONTRAST [CT] Routine Exams 10/02/21 20:05 Taken HEAD WITHOUT CONTRAST [CT] Stat Exams 10/02/21 16:39 Taken KNEE (1 OR 2 VIEW) Stat Exams 10/02/21 16:39 Taken ABG [ARTERIAL BLOOD GASES] Stat Lab 10/02/21 16:34 Completed BLOOD CULTURE Stat Lab 10/02/21 16:39 Received CBC W DIFF Stat Lab 10/02/21 16:35 Completed CMP Stat Lab 10/02/21 16:39 Completed CULTURE,URINE Stat Lab 10/02/21 19:26 Received D-DIMER QUANTITATIVE Stat Lab 10/02/21 16:39 Completed Ferritin Stat Lab 10/02/21 16:39 Completed INFLUENZA A+B JENY Stat Lab 10/02/21 16:52 Completed LDH-LACTATE DEHYDROGENASE Stat Lab 10/02/21 16:39 Completed Lactic Acid Stat Lab 10/02/21 16:34 Completed Lactic Acid Stat Lab 10/02/21 18:45 Completed MAGNESIUM Stat Lab 10/02/21 16:39 Completed [place] Screen Stat Lab 10/02/21 16:45 Completed NT PRO BNP Stat Lab 10/02/21 16:39 Completed PROTIME WITH INR Stat Lab 10/02/21 16:39 Completed PTT Stat Lab 10/02/21 16:39 Completed TROPONIN Q3H Lab 10/02/21 16:45 Completed TROPONIN Q3H Lab 10/02/21 20:05 Completed TROPONIN Q3H Lab 10/02/21 22:45 Ordered TROPONIN Q3H Lab 10/03/21 01:45 Ordered TROPONIN Q3H Lab 10/03/21 04:45 Ordered UA W/RFX UR CULTURE Stat Lab 10/02/21 19:26 Completed Medication Summary Generic Name Dose Route Start Last Admin Trade Name Freq PRN Reason Stop Dose Admin Sodium Chloride 1,000 mls @ 100 mls/hr 10/02/21 16:45 10/02/21 16:43 Sodium Chloride 0.9% 1000 Ml IV 11/01/21 16:44 100 mls/hr .Q10H OLGA LIDIA Administration Discontinued Medications Generic Name Dose Route Start Last Admin Trade Name Patrick PRN Reason Stop Dose Admin Methylprednisolone Sodium 0 mg 10/02/21 17:06 10/02/21 18:38 Succinate 125 mg/ Sterile IV 10/02/21 17:07 125 mg Water 2 ml STAT ONE Administration Furosemide 40 mg 10/02/21 17:51 10/02/21 18:36 Furosemide 40 Mg/4 Ml Vial IV 10/02/21 17:52 40 mg STAT ONE Administration Furosemide Confirm 10/02/21 18:21 Furosemide 40 Mg/4 Ml Vial Administered 10/02/21 18:22 Dose 40 mg .ROUTE .STK-MED ONE Potassium Chloride 20 meq in 100 mls @ 50 mls/hr 10/02/21 18:53 10/02/21 19:00 Potassium Chloride 20 Meq In Water 100ml IV 10/02/21 20:52 50 mls/hr STAT ONE Administration Potassium Chloride Confirm 10/02/21 18:57 Potassium Chloride 20 Meq In Water 100ml Administered 10/02/21 18:58 Dose 100 mls @ ud IV .STK-MED ONE Ceftriaxone Sodium/Dextrose 1 g in 50 mls @ 100 mls/hr 10/02/21 20:13 10/02/21 20:23 Rocephin 1 Gm-D5w 50 Ml Bag IV 10/02/21 20:42 100 mls/hr STAT STA 100 mls/hr Administration Ceftriaxone Sodium/Dextrose Confirm 10/02/21 20:20 Rocephin 1 Gm-D5w 50 Ml Bag Administered 10/02/21 20:21 Dose 1 g in 50 mls @ ud IV .STK-MED ONE Methylprednisolone Sodium Succinate Confirm 10/02/21 18:21 Methylprednis Sod Succ 125 Mg/2 Ml Vial Administered 10/02/21 18:22 Dose 125 mg .ROUTE .STK-MED ONE Sterile Water Confirm 10/02/21 18:21 Water For Injection,Sterile 10 Ml Vial Administered 10/02/21 18:22 Dose 10 ml IJ .STK-MED ONE Sterile Water Confirm 10/02/21 18:38 Water For Injection,Sterile 10 Ml Vial Administered 10/02/21 18:39 Dose 10 ml IJ .STK-MED ONE Lab/Rad Data: Laboratory Result Diagrams 10/02/21 16:35 10/02/21 16:39 Laboratory Results 10/02/21 10/02/21 10/02/21 Range/Units 20:05 19:26 18:45 WBC (4.0-10.5) K/mm3 RBC (4.1-5.6) M/mm3 Hgb (12.5-18.0) gm/dl Hct (42-50) % MCV (78-100) fl MCH (26-32) pg MCHC (32-36) g/dl RDW (11.5-14.0) % Plt Count (150-450) K/mm3 MPV (7.5-11.0) fl Gran % (36.0-66.0) % Eos # (Auto) (0-0.5) Absolute Lymphs (auto) (1.0-4.6) Absolute Monos (auto) (0.0-1.3) Lymphocytes % (24.0-44.0) % Monocytes % (0.0-12.0) % Eosinophils % (0.00-5.0) % Basophils % (0.0-0.4) % Absolute Granulocytes (1.4-6.9) Basophils # (0-0.4) PT (9.4-12.5) SECONDS INR (0.8-3.0) APTT (25.1-36.5) SECONDS D-Dimer (215-500) ng/mL Puncture Site pCO2 (35-45) mmHg pO2 (75-100) mmHg Base Excess (-2.0-2.0) O2 Saturation (94-100) g/dF ABG pH (7.35-7.45) ABG HCO3 (22-28) ABG O2 Sat (Measured) (95-100) % Abe Test A-a Gradient a/A Ratio Hemoglobin Carboxyhemoglobin (0.0-6.9) % THgb Methemoglobin (1.4-1.5) % Potassium (3.5-5.1) Temperature C POC O2 Flow Rate % Sodium (137-145) mmol/L Chloride (98-107) mmol/L Carbon Dioxide (22-30) mmol/L Anion Gap (5-15) MEQ/L BUN (9-20) mg/dL Creatinine (0.66-1.25) mg/dL Estimated GFR ML/MIN Glucose (74-106) mg/dL Lactic Acid 2.0 (0.4-2.0) Calcium (8.4-10.2) mg/dL Magnesium (1.6-2.3) mg/dL Ferritin (17.9-464) ng/mL Total Bilirubin (0.2-1.3) mg/dL AST (17-59) U/L ALT (0-50) U/L Alkaline Phosphatase (38-126) U/L Lactate Dehydrogenase (120-246) U/L Troponin I 0.232 H* (0.000-0.034) ng/mL NT-Pro-B Natriuret Pep (0-1800) pg/mL Serum Total Protein (6.3-8.2) g/dL Albumin (3.5-5.0) g/dL Urine Color YELLOW (YELLOW) Urine Appearance SLIGHTLY CLOUDY (CLEAR) Urine pH 6.0 (5-6) Ur Specific [place] 1.014 (1.005-1.025) Urine Protein 30 (Negative) Urine Ketones NEGATIVE (NEGATIVE) Urine Blood NEGATIVE (0-5) Valentin/ul Urine Nitrite POSITIVE (NEGATIVE) Urine Bilirubin NEGATIVE (NEGATIVE) Urine Urobilinogen 2 (0-1) mg/dL Ur Leukocyte Esterase TRACE (NEGATIVE) Urine WBC (Auto) 16-25 (0-5) /HPF Urine RBC (Auto) 0-2 (0-2) /HPF U Hyaline Cast (Auto) 11-25 (0-2) /LPF U Epithel Cells (Auto) NONE (FEW) /HPF Urine Bacteria (Auto) PACKED (NEGATIVE) /HPF Urine Mucus (Auto) SLIGHT (NEGATIVE) /HPF Urine Culture Reflexed YES (NO) Urine Glucose NEGATIVE (NEGATIVE) mg/dL Monoscreen (Negative) Influenza Type A Ag (NEGATIVE) Influenza Type B Ag (NEGATIVE) SARS-CoV-2 Ag (Rapid) (NEGATIVE) Group A Strep Antibody (NEGATIVE) 10/02/21 10/02/21 10/02/21 Range/Units 17:22 16:54 16:52 WBC (4.0-10.5) K/mm3 RBC (4.1-5.6) M/mm3 Hgb (12.5-18.0) gm/dl Hct (42-50) % MCV (78-100) fl MCH (26-32) pg MCHC (32-36) g/dl RDW (11.5-14.0) % Plt Count (150-450) K/mm3 MPV (7.5-11.0) fl Gran % (36.0-66.0) % Eos # (Auto) (0-0.5) Absolute Lymphs (auto) (1.0-4.6) Absolute Monos (auto) (0.0-1.3) Lymphocytes % (24.0-44.0) % Monocytes % (0.0-12.0) % Eosinophils % (0.00-5.0) % Basophils % (0.0-0.4) % Absolute Granulocytes (1.4-6.9) Basophils # (0-0.4) PT (9.4-12.5) SECONDS INR (0.8-3.0) APTT (25.1-36.5) SECONDS D-Dimer (215-500) ng/mL Puncture Site pCO2 (35-45) mmHg pO2 (75-100) mmHg Base Excess (-2.0-2.0) O2 Saturation (94-100) g/dF ABG pH (7.35-7.45) ABG HCO3 (22-28) ABG O2 Sat (Measured) (95-100) % Abe Test A-a Gradient a/A Ratio Hemoglobin Carboxyhemoglobin (0.0-6.9) % THgb Methemoglobin (1.4-1.5) % Potassium (3.5-5.1) Temperature C POC O2 Flow Rate % Sodium (137-145) mmol/L Chloride (98-107) mmol/L Carbon Dioxide (22-30) mmol/L Anion Gap (5-15) MEQ/L BUN (9-20) mg/dL Creatinine (0.66-1.25) mg/dL Estimated GFR ML/MIN Glucose (74-106) mg/dL Lactic Acid (0.4-2.0) Calcium (8.4-10.2) mg/dL Magnesium (1.6-2.3) mg/dL Ferritin (17.9-464) ng/mL Total Bilirubin (0.2-1.3) mg/dL AST (17-59) U/L ALT (0-50) U/L Alkaline Phosphatase (38-126) U/L Lactate Dehydrogenase (120-246) U/L Troponin I (0.000-0.034) ng/mL NT-Pro-B Natriuret Pep (0-1800) pg/mL Serum Total Protein (6.3-8.2) g/dL Albumin (3.5-5.0) g/dL Urine Color (YELLOW) Urine Appearance (CLEAR) Urine pH (5-6) Ur Specific [place] (1.005-1.025) Urine Protein (Negative) Urine Ketones (NEGATIVE) Urine Blood (0-5) Valentin/ul Urine Nitrite (NEGATIVE) Urine Bilirubin (NEGATIVE) Urine Urobilinogen (0-1) mg/dL Ur Leukocyte Esterase (NEGATIVE) Urine WBC (Auto) (0-5) /HPF Urine RBC (Auto) (0-2) /HPF U Hyaline Cast (Auto) (0-2) /LPF U Epithel Cells (Auto) (FEW) /HPF Urine Bacteria (Auto) (NEGATIVE) /HPF Urine Mucus (Auto) (NEGATIVE) /HPF Urine Culture Reflexed (NO) Urine Glucose (NEGATIVE) mg/dL Monoscreen (Negative) Influenza Type A Ag NEGATIVE (NEGATIVE) Influenza Type B Ag NEGATIVE (NEGATIVE) SARS-CoV-2 Ag (Rapid) POSITIVE A* (NEGATIVE) Group A Strep Antibody NOT DETECTED (NEGATIVE) 10/02/21 10/02/21 10/02/21 Range/Units 16:45 16:45 16:39 WBC (4.0-10.5) K/mm3 RBC (4.1-5.6) M/mm3 Hgb (12.5-18.0) gm/dl Hct (42-50) % MCV (78-100) fl MCH (26-32) pg MCHC (32-36) g/dl RDW (11.5-14.0) % Plt Count (150-450) K/mm3 MPV (7.5-11.0) fl Gran % (36.0-66.0) % Eos # (Auto) (0-0.5) Absolute Lymphs (auto) (1.0-4.6) Absolute Monos (auto) (0.0-1.3) Lymphocytes % (24.0-44.0) % Monocytes % (0.0-12.0) % Eosinophils % (0.00-5.0) % Basophils % (0.0-0.4) % Absolute Granulocytes (1.4-6.9) Basophils # (0-0.4) PT 27.3 H (9.4-12.5) SECONDS INR 2.31 (0.8-3.0) APTT 35.2 (25.1-36.5) SECONDS D-Dimer 1662 H* (215-500) ng/mL Puncture Site pCO2 (35-45) mmHg pO2 (75-100) mmHg Base Excess (-2.0-2.0) O2 Saturation (94-100) g/dF ABG pH (7.35-7.45) ABG HCO3 (22-28) ABG O2 Sat (Measured) (95-100) % Abe Test A-a Gradient a/A Ratio Hemoglobin Carboxyhemoglobin (0.0-6.9) % THgb Methemoglobin (1.4-1.5) % Potassium (3.5-5.1) Temperature C POC O2 Flow Rate % Sodium (137-145) mmol/L Chloride (98-107) mmol/L Carbon Dioxide (22-30) mmol/L Anion Gap (5-15) MEQ/L BUN (9-20) mg/dL Creatinine (0.66-1.25) mg/dL Estimated GFR ML/MIN Glucose (74-106) mg/dL Lactic Acid (0.4-2.0) Calcium (8.4-10.2) mg/dL Magnesium (1.6-2.3) mg/dL Ferritin (17.9-464) ng/mL Total Bilirubin (0.2-1.3) mg/dL AST (17-59) U/L ALT (0-50) U/L Alkaline Phosphatase (38-126) U/L Lactate Dehydrogenase (120-246) U/L Troponin I 0.183 H* (0.000-0.034) ng/mL NT-Pro-B Natriuret Pep (0-1800) pg/mL Serum Total Protein (6.3-8.2) g/dL Albumin (3.5-5.0) g/dL Urine Color (YELLOW) Urine Appearance (CLEAR) Urine pH (5-6) Ur Specific [place] (1.005-1.025) Urine Protein (Negative) Urine Ketones (NEGATIVE) Urine Blood (0-5) Valentin/ul Urine Nitrite (NEGATIVE) Urine Bilirubin (NEGATIVE) Urine Urobilinogen (0-1) mg/dL Ur Leukocyte Esterase (NEGATIVE) Urine WBC (Auto) (0-5) /HPF Urine RBC (Auto) (0-2) /HPF U Hyaline Cast (Auto) (0-2) /LPF U Epithel Cells (Auto) (FEW) /HPF Urine Bacteria (Auto) (NEGATIVE) /HPF Urine Mucus (Auto) (NEGATIVE) /HPF Urine Culture Reflexed (NO) Urine Glucose (NEGATIVE) mg/dL Monoscreen NEGATIVE (Negative) Influenza Type A Ag (NEGATIVE) Influenza Type B Ag (NEGATIVE) SARS-CoV-2 Ag (Rapid) (NEGATIVE) Group A Strep Antibody (NEGATIVE) 10/02/21 10/02/21 10/02/21 Range/Units 16:39 16:35 16:34 WBC 3.7 L (4.0-10.5) K/mm3 RBC 4.57 (4.1-5.6) M/mm3 Hgb 13.4 (12.5-18.0) gm/dl Hct 41.9 L (42-50) % MCV 91.7 (78-100) fl MCH 29.3 (26-32) pg MCHC 32.0 (32-36) g/dl RDW 16.9 H (11.5-14.0) % Plt Count 150 (150-450) K/mm3 MPV 9.7 (7.5-11.0) fl Gran % 69.2 H (36.0-66.0) % Eos # (Auto) 0 (0-0.5) Absolute Lymphs (auto) 0.81 L (1.0-4.6) Absolute Monos (auto) 0.29 (0.0-1.3) Lymphocytes % 22.1 L (24.0-44.0) % Monocytes % 7.9 (0.0-12.0) % Eosinophils % 0.0 (0.00-5.0) % Basophils % 0.8 (0.0-0.4) % Absolute Granulocytes 2.53 (1.4-6.9) Basophils # 0.03 (0-0.4) PT (9.4-12.5) SECONDS INR (0.8-3.0) APTT (25.1-36.5) SECONDS D-Dimer (215-500) ng/mL Puncture Site RIGHT BRACHIAL pCO2 28 L (35-45) mmHg pO2 49 L* (75-100) mmHg Base Excess -2.6 L (-2.0-2.0) O2 Saturation 81.5 L (94-100) g/dF ABG pH 7.46 H (7.35-7.45) ABG HCO3 19.9 L (22-28) ABG O2 Sat (Measured) 84.2 L (95-100) % Abe Test NOT APPLICABLE A-a Gradient 230 a/A Ratio 0.18 Hemoglobin 13.7 Carboxyhemoglobin 2.1 (0.0-6.9) % THgb Methemoglobin 1.0 L (1.4-1.5) % Potassium 3.3 L 2.9 L* (3.5-5.1) Temperature 37.0 C POC O2 Flow Rate 44 % Sodium 140 (137-145) mmol/L Chloride 99 (98-107) mmol/L Carbon Dioxide 24 (22-30) mmol/L Anion Gap 19.8 H (5-15) MEQ/L BUN 22 H (9-20) mg/dL Creatinine 1.37 H (0.66-1.25) mg/dL Estimated GFR 52.7 ML/MIN Glucose 142 H (74-106) mg/dL Lactic Acid (0.4-2.0) Calcium 8.6 (8.4-10.2) mg/dL Magnesium 2.0 (1.6-2.3) mg/dL Ferritin 1770 H (17.9-464) ng/mL Total Bilirubin 0.90 (0.2-1.3) mg/dL AST 75 H (17-59) U/L ALT 31 (0-50) U/L Alkaline Phosphatase 80 (38-126) U/L Lactate Dehydrogenase 769 H (120-246) U/L Troponin I (0.000-0.034) ng/mL NT-Pro-B Natriuret Pep 59178 H (0-1800) pg/mL Serum Total Protein 7.2 (6.3-8.2) g/dL Albumin 3.8 (3.5-5.0) g/dL Urine Color (YELLOW) Urine Appearance (CLEAR) Urine pH (5-6) Ur Specific [place] (1.005-1.025) Urine Protein (Negative) Urine Ketones (NEGATIVE) Urine Blood (0-5) Valentin/ul Urine Nitrite (NEGATIVE) Urine Bilirubin (NEGATIVE) Urine Urobilinogen (0-1) mg/dL Ur Leukocyte Esterase (NEGATIVE) Urine WBC (Auto) (0-5) /HPF Urine RBC (Auto) (0-2) /HPF U Hyaline Cast (Auto) (0-2) /LPF U Epithel Cells (Auto) (FEW) /HPF Urine Bacteria (Auto) (NEGATIVE) /HPF Urine Mucus (Auto) (NEGATIVE) /HPF Urine Culture Reflexed (NO) Urine Glucose (NEGATIVE) mg/dL Monoscreen (Negative) Influenza Type A Ag (NEGATIVE) Influenza Type B Ag (NEGATIVE) SARS-CoV-2 Ag (Rapid) (NEGATIVE) Group A Strep Antibody (NEGATIVE) 10/02/21 Range/Units 16:34 WBC (4.0-10.5) K/mm3 RBC (4.1-5.6) M/mm3 Hgb (12.5-18.0) gm/dl Hct (42-50) % MCV (78-100) fl MCH (26-32) pg MCHC (32-36) g/dl RDW (11.5-14.0) % Plt Count (150-450) K/mm3 MPV (7.5-11.0) fl Gran % (36.0-66.0) % Eos # (Auto) (0-0.5) Absolute Lymphs (auto) (1.0-4.6) Absolute Monos (auto) (0.0-1.3) Lymphocytes % (24.0-44.0) % Monocytes % (0.0-12.0) % Eosinophils % (0.00-5.0) % Basophils % (0.0-0.4) % Absolute Granulocytes (1.4-6.9) Basophils # (0-0.4) PT (9.4-12.5) SECONDS INR (0.8-3.0) APTT (25.1-36.5) SECONDS D-Dimer (215-500) ng/mL Puncture Site pCO2 (35-45) mmHg pO2 (75-100) mmHg Base Excess (-2.0-2.0) O2 Saturation (94-100) g/dF ABG pH (7.35-7.45) ABG HCO3 (22-28) ABG O2 Sat (Measured) (95-100) % Abe Test A-a Gradient a/A Ratio Hemoglobin Carboxyhemoglobin (0.0-6.9) % THgb Methemoglobin (1.4-1.5) % Potassium (3.5-5.1) Temperature C POC O2 Flow Rate % Sodium (137-145) mmol/L Chloride (98-107) mmol/L Carbon Dioxide (22-30) mmol/L Anion Gap (5-15) MEQ/L BUN (9-20) mg/dL Creatinine (0.66-1.25) mg/dL Estimated GFR ML/MIN Glucose (74-106) mg/dL Lactic Acid 6.2 H (0.4-2.0) Calcium (8.4-10.2) mg/dL Magnesium (1.6-2.3) mg/dL Ferritin (17.9-464) ng/mL Total Bilirubin (0.2-1.3) mg/dL AST (17-59) U/L ALT (0-50) U/L Alkaline Phosphatase (38-126) U/L Lactate Dehydrogenase (120-246) U/L Troponin I (0.000-0.034) ng/mL NT-Pro-B Natriuret Pep (0-1800) pg/mL Serum Total Protein (6.3-8.2) g/dL Albumin (3.5-5.0) g/dL Urine Color (YELLOW) Urine Appearance (CLEAR) Urine pH (5-6) Ur Specific [place] (1.005-1.025) Urine Protein (Negative) Urine Ketones (NEGATIVE) Urine Blood (0-5) Valentin/ul Urine Nitrite (NEGATIVE) Urine Bilirubin (NEGATIVE) Urine Urobilinogen (0-1) mg/dL Ur Leukocyte Esterase (NEGATIVE) Urine WBC (Auto) (0-5) /HPF Urine RBC (Auto) (0-2) /HPF U Hyaline Cast (Auto) (0-2) /LPF U Epithel Cells (Auto) (FEW) /HPF Urine Bacteria (Auto) (NEGATIVE) /HPF Urine Mucus (Auto) (NEGATIVE) /HPF Urine Culture Reflexed (NO) Urine Glucose (NEGATIVE) mg/dL Monoscreen (Negative) Influenza Type A Ag (NEGATIVE) Influenza Type B Ag (NEGATIVE) SARS-CoV-2 Ag (Rapid) (NEGATIVE) Group A Strep Antibody (NEGATIVE) - Progress Progress Note: 10/02/21 19:13 Chest x-ray shows cardiomegaly with bibasilar infiltrate versus fluid. X-ray of right knee shows no acute fracture or dislocation. The knee replacement hardware appears to be intact. CAT scan of the head without contrast shows nonacute senile brain 10/02/21 21:04 CAT scan of the chest with contrast shows no evidence of central pulmonary embolism. There is a 5 cm ascending aortic aneurysm with tiny local dissection. I spoke with Dr. Capps about this and he is unsure if this is old new unchanged. There is bilaterally pleural effusions present and consolidation/nonconcerning airspace disease. 10/02/21 21:34 Medical decision making: I spoke with [facility] hospitalist Dr. Reina. I reviewed the patient history, physical findings, laboratory results, and results of the chest x-ray as well as the CTA of the chest including the thoracic aortic aneurysm that was repaired in the past. I told her that it was unclear as to whether or not this finding of tiny dissection was actually old and not acute. Patient denies chest pain. I had spoken with our radiologist, Dr. Capps who read out the film to clarify as best he could. He told me that this finding of tiny dissection could be unchanged or chronic and not acute. However he could not specifically determine because there were no comparison films available. The repair of the thoracic aortic aneurysm was performed 15 to 20 years ago. I discussed with Dr. Reina the above and she accepts the patient in transfer to [facility]. 10/02/21 21:38 10/02/21 21:39 Counseled pt/family regarding: lab results, diagnosis, rad results - Departure Departure Disposition: Transfer Clinical Impression: Hypoxia, Shortness of breath, Hypokalemia, Lactic acidemia, Non-STEMI (non-ST elevated myocardial infarction), Congestive heart failure, COVID-19 virus infection, UTI (urinary tract infection) Condition: Serious Critical Care Time: Yes Critical Care Time(excluding separately billable procedures): Critical 30-74 mins (69 minutes) Referrals: [facility] [LOCATION] - Follow up/PCP as directed Instructions: Heart Failure
[2021-10-02 16:41] LABS: A-aADO2 230; ABG HEMOGLOBIN 13.7; ARTERIAL BLD GAS O2 SATURATION 84.2 % (95-100); ARTERIAL BLOOD GAS BASE EXCESS -2.6 (-2.0-2.0); ARTERIAL BLOOD GAS FIO2 44 %; ARTERIAL BLOOD GAS PCO2 28 mmHg (35-45); ARTERIAL BLOOD GAS PO2 49 mmHg (75-100); ARTERIAL BLOOD GAS pH 7.46 (7.35-7.45); CARBOXYHEMOGLOBIN 2.1 % THgb (0.0-6.9); HCO3- 19.9 (22-28); HGB O2 SAT 81.5 g/dF (94-100)
[2021-10-02] MEDS ORDERED: Sodium Chloride 0.9% 1000 ML 1,000 ML ONE (16:41)
[2021-10-02 16:42] LABS: ABG POTASSIUM 2.9 (3.5-5.1); ABG SITE RIGHT BRACHIAL
[2021-10-02] MEDS ORDERED: Sodium Chloride 0.9% 1000 ML 1,000 ML IV SCH (16:45)
[2021-10-02 16:51] LABS: Absolute Neutrophil Ct (ANC) 2.53 (1.4-6.9); BASOPHIL % 0.8 % (0.0-0.4); Basophil (Absolute #) 0.03 (0-0.4); Eosinophil (Absolute #) 0 (0-0.5); Hematocrit 41.9 % (42-50); Hemoglobin 13.4 gm/dl (12.5-18.0); Lymphocyte (Absolute #) 0.81 (1.0-4.6); Lymphocytes % 22.1 % (24.0-44.0); Mean Cell Volume 91.7 fl (78-100); Mean Corpuscular Hemoglobin 29.3 pg (26-32); Mean Platelet Volume 9.7 fl (7.5-11.0); Monocyte (Absolute #) 0.29 (0.0-1.3); Monocytes % 7.9 % (0.0-12.0); Neutrophil % 69.2 % (36.0-66.0); Platelet Count 150 K/mm3 (150-450); Red Blood Count 4.57 M/mm3 (4.1-5.6); Red Cell Distribution Width 16.9 % (11.5-14.0); White Blood Count 3.7 K/mm3 (4.0-10.5)
[2021-10-02 17:04] LABS: INR 2.31 (0.8-3.0); PROTIME 27.3 SECONDS (9.4-12.5)
[2021-10-02 17:06] LABS: PTT 35.2 SECONDS (25.1-36.5)
[2021-10-02] MEDS ORDERED: solu-MEDROL 125 MG, Sterile H2O 10 ml 2 ML IV ONE ×2 (17:06)
[2021-10-02 17:22] LABS: ALBUMIN 3.8 g/dL (3.5-5.0); ANION GAP 19.8 MEQ/L (5-15); BILIRUBIN,TOTAL 0.9 mg/dL (0.2-1.3); Calcium 8.6 mg/dL (8.4-10.2); Creatinine 1 1.37 mg/dL (0.66-1.25); EST GLOMERULAR FILTRATION RATE 52.7 ML/MIN; Potassium 3.3 mmol/L (3.5-5.1); Total Protein 7.2 g/dL (6.3-8.2)
[2021-10-02 17:38] LABS: INFLUENZA A NEGATIVE (NEGATIVE); INFLUENZA B NEGATIVE (NEGATIVE)
[2021-10-02 17:40] LABS: COVID AG -BINAX NOW RAPID TEST POSITIVE (NEGATIVE)
[2021-10-02] MEDS ORDERED: Lasix 40 MG/4 ML IV ONE (17:51)
[2021-10-02] MEDS ORDERED: solu-MEDROL ONE (18:21)
[2021-10-02] MEDS ORDERED: Lasix 40 MG/4 ML ONE (18:21)
[2021-10-02] MEDS ORDERED: Sterile H2O 10 ml IJ ONE ×2 (18:21→18:38)
[2021-10-02] MEDS ORDERED: POTASSIUM CHLORIDE 20 mEq IN WATER 100ML 20 MEQ/100 ML BAG IV ONE (18:53)
[2021-10-02] MEDS ORDERED: POTASSIUM CHLORIDE 20 mEq IN WATER 100ML 100 ML IV ONE (18:57)
[2021-10-02 19:59] LABS: Appearance SLIGHTLY CLOUDY (CLEAR); Bacteria PACKED /HPF (NEGATIVE); Bilirubin NEGATIVE (NEGATIVE); Blood NEGATIVE Ery/ul (0-5); Glucose NEGATIVE (NEGATIVE); Ketones NEGATIVE (NEGATIVE); Leukocyte Esterase TRACE (NEGATIVE); Mucus SLIGHT /HPF (NEGATIVE); Nitrite POSITIVE (NEGATIVE); Protein,Urine Dip 30 (Negative); RBC 0-2 /HPF (0-2); Specific Gravity 1.014 (1.005-1.025); Urobilinogen 2 mg/dL (0-1)
[2021-10-02] MEDS ORDERED: ROCEPHIN 1 Gm-D5w 50 ml Bag** 1 G/50 ML IVPB IV STA (20:13)
[2021-10-02] MEDS ORDERED: ROCEPHIN 1 Gm-D5w 50 ml Bag** 1 G/50 ML IVPB IV ONE (20:20)
[2021-10-02 22:40] VITALS: BP 118/70; PULSE 68; O2SAT 94
--- NOTE | 2021-10-03 08:50 | XRAY ---
Indication: Short of breath. Elevated d-dimer. Positive Covid 19. Multiple contiguous axial images obtained through the chest using 80 cc Isovue 370 contrast and PE protocol. Comparison: None There is good opacification of the pulmonary arteries including lobar and segmental branches. However diffuse respiration artifact limits evaluation for pulmonary embolus. No obvious central pulmonary embolus. 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 Aorta is moderately arteriosclerotic with anatomic variant for bovine arch. The ascending is enlarged up to 5 cm in diameter. Aortic arch also demonstrates small focal dissection just distal to the takeoff of the brachiocephalic artery measuring 1.2 cm in diameter and 3.1 cm in length. No free fluid or evidence for active hemorrhage. No pathologic mediastinal/hilar lymphadenopathy. Small hiatal hernia. Lungs demonstrates extensive diffuse bilateral consolidating and nonconsolidating airspace disease. Also tiny bilateral pleural effusions. Bony thorax demonstrates osteopenia, flowing osteophytes of the spine, and sternotomy wires. Limited upper abdomen demonstrates at least 4 hepatic cysts, largest left lobe measuring 2.6 cm. Also 1 cm left mid renal cortical cyst and incompletely visualized 1.9 cm right mid renal exophytic mass. Impression: 1. Diffuse respiration artifact limits evaluation for pulmonary embolus. No obvious central pulmonary embolus. 2. Diffuse bilateral consolidating/nonconsolidating airspace disease. 3. Cardiomegaly with tiny bilateral effusions concerning for superimposed cardiac decompensation. 4. Ascending aortic aneurysm with small focal aortic arch dissection. No active hemorrhage. 5. Incompletely visualized right mid renal exophytic mass. Initial renal sonogram may differentiate solid versus cystic mass. 6. Incidental hepatic/left renal cysts and chronic bony findings. Comment: Case was discussed with the ordering clinician via telephone at 2102 hrs. on October 02, 2021.
--- NOTE | 2021-10-03 08:52 | XRAY ---
Indication: Cough and severe short of breath. Comparison: May 14, 2015. Portable chest demonstrates new diffuse bilateral airspace disease and tiny left effusion. Heart remains enlarged again with CABG surgery and left AICD. Bony thorax intact with incidental osteopenia, degenerative changes, and partially visualized right humerus fracture.
--- NOTE | 2021-10-03 08:52 | XRAY ---
Indication: Status post fall. Multiple contiguous axial images obtained through the head without contrast. Comparison: February 27, 2021. There remains age-appropriate global atrophy and moderate periventricular degenerative micro-ischemia. No acute intracranial hemorrhage, abnormal extra-axial fluid collection, or mass effect. Fourth ventricle is midline. Bony calvarium intact. Visualized paranasal sinuses and mastoid air cells are clear. Impression: Continued nonacute senile brain.
--- NOTE | 2021-10-03 08:54 | XRAY ---
Indication: Status post fall. 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 No other bony, articular, or soft tissue abnormalities.
== END 2021-10-02 22:55 | disposition short-term general hospital (02) ==
LOC: ED 16:23
DX: R09.02 Hypoxemia (principal); R06.02 Shortness of breath; E87.6 Hypokalemia; E87.2 Acidosis; I21.4 Non-ST elevation (NSTEMI) myocardial infarction; I50.9 Heart failure, unspecified; U07.1 COVID-19; N39.0 Urinary tract infection, site not specified; I10 Essential (primary) hypertension
CPT/HCPCS: 36415; 36600; 70450; 71045; 71260; 73560; 80053; 81001; 82375; 82728; 82803; 83605; 83615; 83735; 83880; 84484; 85025; 85379; 85610; 85730; 86308; 87040; 87077; 87086; 87186; 87400; 87651; 93005; 93041; 96365; 96374; 96375; 99000; 99285; 99291; J0696; J1940; J2930; J3480